=== PATIENT | female | born 1955 | race Caucasian/White ===

== ENCOUNTER → 2017-03-16 | Outpatient (CLI) | payer OTHER | LOC: FIMAGING 08:47 | PROVIDERS: ATTEND Internal Medicine | DX: Z12.31 Encounter for screening mammogram for malignant neoplasm of breast (principal) | CPT/HCPCS: G0202 ==

== ENCOUNTER → 2018-06-07 | Outpatient (CLI) | payer OTHER | LOC: FIMAGING 15:37 | PROVIDERS: ATTEND Internal Medicine | DX: Z12.31 Encounter for screening mammogram for malignant neoplasm of breast (principal) ==

== ENCOUNTER → 2019-01-17 | Outpatient (CLI) | payer OTHER | LOC: BMCIMAGING 15:13 ==